=== PATIENT | male | born 1940 | race Caucasian/White ===

== ENCOUNTER 2021-09-27 06:07 | Day surgery (SDC) | payer MEDICARE, OTHER ==
[2021-09-27] VITALS (12 sets, daily range): BP systolic 127–177; BP diastolic 66–97
[~2021-09-27] VITALS: Ht 177.8 cm; Wt 105.9 kg
[~2021-09-27 06:07] MED LIST: CARV-49 PO; CELE-193 PO; CLOP75TA34 PO; DILT300C53 PO; FAMO20TA8 PO; FURO-150 PO; HYDR-3965 PO; ISOS30TA84 PO; TAMS0.4C32 PO; WARF-113 PO
[2021-09-27] MEDS ORDERED: LORazepam 0.5 MG tablet PO PRN (06:30)
[2021-09-27] MEDS ORDERED: sodium bicarbonate (8.4%) inj. 150 ML in dextrose 5%-water 1,000 ML IV ONE ×2 (06:30→08:15)
[2021-09-27] MEDS ORDERED: ROSU20TA31 PO (06:47)
[2021-09-27] MEDS ORDERED: ISOS60TA71 PO (06:47)
[2021-09-27] MEDS ORDERED: DILT-96 PO (06:47)
[2021-09-27] MEDS ORDERED: NITR0.4T48 (06:47)
[2021-09-27] MEDS ORDERED: POTA10TA37 PO (06:47)
[2021-09-27] MEDS ORDERED: CARV-50 PO (06:47)
[2021-09-27] MEDS ORDERED: ASPI-1071 PO (06:49)
[2021-09-27] MEDS ORDERED: UBID50CA23 PO (06:49)
[2021-09-27] MEDS: acetylcysteine 200 MG/ml 4ml vial PO SCH ×4 (07:00→14:24)
[2021-09-27] MEDS: diphenhydrAMINE 25mg capsule PO PRN ×2 (07:00→11:24)
[2021-09-27] MEDS ORDERED: verapamil 2.5 mg/ml inj IV ONE (07:13)
[2021-09-27] MEDS ORDERED: nitroGLYCERIN-Tridil 50MG/D5W 250 ML IV ONE (07:13)
[2021-09-27] MEDS ORDERED: fentaNYL/PF 50MCG/1 ML 2ML syringe ONE (07:14)
[2021-09-27] MEDS ORDERED: LIDOcaine 1% (10mg/ml)w/preservative inj. 20ml MDV ONE (07:14)
[2021-09-27] MEDS ORDERED: heparin 1,000unit/ml 10ml vial 10 ML ONE (07:14)
[2021-09-27] MEDS ORDERED: midazolam 1 mg/ML 2ml injection ONE (07:14)
[2021-09-27] MEDS ORDERED: iohexol 350MG/ML 100ml bottle IV ONE ×2 (07:14→08:48)
[2021-09-27] MEDS ORDERED: iohexol 350 MG/ML 50ML vial IV ONE (07:14)
[2021-09-27 07:15] LABS: BASOPHILS % (AUTO) 0.5 % (0-1); EOSINOPHILS # (AUTO) 0.2 X10'3 (0-0.9); EOSINOPHILS % (AUTO) 5.2 % (0-6); HEMATOCRIT 41.7 % (42.0-52.0); HEMOGLOBIN 14.3 g/dl (14.0-17.9); LYMPHOCYTES # (AUTO) 0.7 X10'3 (1.1-4.8); LYMPHOCYTES % (AUTO) 15.6 % (21-51); MEAN CORPUSCULAR HEMOGLOBIN 34.1 PG (27.0-31.0); MEAN CORPUSCULAR HGB CONC 34.4 g/dL (33.0-36.5); MEAN CORPUSCULAR VOLUME 99.4 FL (78-98); MEAN PLATELET VOLUME 9.5 FL (7.4-10.4); MONOCYTES # (AUTO) 0.5 X10'3 (0-0.9); MONOCYTES % (AUTO) 10.1 % (2-12); NEUTROPHILS # (AUTO) 3.2 X10'3 (1.8-7.7); NEUTROPHILS % (AUTO) 68.6 % (42-75); PLATELET COUNT 137 X10'3 (140-440); RED CELL DISTRIBUTION WIDTH 13.5 % (11.5-14.5); WHITE BLOOD COUNT 4.6 X10'3 (4.5-11.0)
[2021-09-27 07:26] LABS: APTT 27 SECONDS (22-32)
[2021-09-27 08:00] LABS: ALBUMIN 3.4 G/DL (3.4-5.0); ANION GAP 7 (8-16); BLOOD UREA NITROGEN 25 MG/DL (7-18); BUN/CREATININE RATIO 12.7 (5.4-32.0); CALCIUM 8.1 MG/DL (8.5-10.1); CHLORIDE 109 MMOL/L (99-107); CREATININE 1.97 MG/DL (0.60-1.10); GLUCOSE 115 MG/DL (70-104); POTASSIUM 4.1 MMOL/L (3.5-5.1); SODIUM 143 MMOL/L (135-145); TOTAL CARBON DIOXIDE 26.6 MMOL/L (24-32); eGFR 33 ML/MIN
--- NOTE | 2021-09-27 10:00 | NUR ---
at bedside assisting pt to eat breakfast. Groin and radial cath sites stable, peripheral pulses palpable, dressings CD&I no bleeding or bruising noted. Dr. Merino at bedside talking with pt and , giving update, questions answered.
--- NOTE | 2021-09-27 11:00 | NUR ---
headed home to rest will return this afternoon to go over DC instructions. Pt groin and radial site remain stable without bleeding or bruising noted. Pt resting comfortably.
[2021-09-27 12:16] LABS: ISTAT HGB ART 13.3 g/dl (14.0-18.0); ISTAT Hct ART 39 %PCV (42-52); ISTAT O2 SATURATION ARTERIAL 99 % (95-98); ISTAT SOURCE ART
[2021-09-27 12:38] LABS: ISTAT Hct MIX 38 %PCV (42-52); ISTAT O2 SATURATION MIX VENOUS 67 % (60-80); ISTAT SOURCE VEN
--- NOTE | 2021-09-27 13:00 | NUR ---
Sharon Pugh RN at bedside talking with pt about TAVR procedure, questions answered.
--- NOTE | 2021-09-27 13:15 | NUR ---
Pt sitting up in bed Right Groin site stable, no bleeding or bruising noted.
--- NOTE | 2021-09-27 13:30 | NUR ---
Vasc band removed, pressure dressing applied to Right radial site, no bleeding or bruising noted.
--- NOTE | 2021-09-27 13:40 | NUR ---
at bedside, DC instructions written and verbal given to pt and , verbalize understanding. VSS, pulses palp. Right groin and Right radial site stable, DRSGs CD&I, no bleeding or bruising noted. Pt able to amb in hallway without assistance, Groin site remains stable. assisted pt to get dressed.
--- NOTE | 2021-09-27 14:15 | NUR ---
DC to home with all belongings. Transferred to private car via .
[2021-11-04] MEDS ORDERED: CARV-50 PO (11:52)
[2021-11-10] MEDS ORDERED: NITR0.4T51 SL (12:57)
== END 2021-09-27 14:15 | disposition home or self-care (01) ==
LOC: SSTAY O 06:07
PROVIDERS: ATTEND Internal Medicine Cardiovascular Disease
DX: R53.83 Other fatigue (principal); R06.02 Shortness of breath; I25.10 Atherosclerotic heart disease of native coronary artery without angina pectoris; E11.22 Type 2 diabetes mellitus with diabetic chronic kidney disease; I13.0 Hypertensive heart and chronic kidney disease with heart failure and stage 1 through stage 4 chronic kidney disease, or unspecified chronic kidney disease; N18.30 Chronic kidney disease, stage 3 unspecified; I50.30 Unspecified diastolic (congestive) heart failure; E78.5 Hyperlipidemia, unspecified; N40.0 Benign prostatic hyperplasia without lower urinary tract symptoms; G89.29 Other chronic pain; K21.9 Gastro-esophageal reflux disease without esophagitis; I48.20 Chronic atrial fibrillation, unspecified; I08.3 Combined rheumatic disorders of mitral, aortic and tricuspid valves; Z79.82 Long term (current) use of aspirin; Z79.01 Long term (current) use of anticoagulants; Z79.899 Other long term (current) drug therapy; Z95.5 Presence of coronary angioplasty implant and graft; Z86.718 Personal history of other venous thrombosis and embolism; Z86.73 Personal history of transient ischemic attack (TIA), and cerebral infarction without residual deficits; Z85.51 Personal history of malignant neoplasm of bladder; Z90.5 Acquired absence of kidney
CPT/HCPCS: 36415; 76937; 80048; 82803; 85014; 85025; 85610; 85730; 93005; 93460; 99152; 99153; C1751; C1769; C1894; J1644; J2250; J3010; J3490; J7070; Q0163; Q9967; A4620; A5120; A6258

== ENCOUNTER 2021-10-15 08:55 | Outpatient (CLI) | payer MEDICARE, OTHER ==
[~2021-10-15] VITALS: Ht 177.8 cm; Wt 108.0 kg
[~2021-10-15 08:55] MED LIST changes: +ASPI-1071 PO; -CARV-49 PO; +CARV-50 PO; -CLOP75TA34 PO; +DILT-96 PO; -DILT300C53 PO; -ISOS30TA84 PO; +ISOS60TA71 PO; +NITR0.4T48; +POTA10TA37 PO; +ROSU20TA31 PO; -TAMS0.4C32 PO; +UBID50CA23 PO; +iohexol 350 MG/ML 50ML vial IV ONE; +iohexol 350MG/ML 100ml bottle IV ONE
[2021-10-15 10:55] LABS: ANION GAP 12 (8-16); BILIRUBIN,TOTAL 0.7 MG/DL (0.1-1.0); BLOOD UREA NITROGEN 23 MG/DL (7-18); CHLORIDE 107 MMOL/L (99-107); GLUCOSE 136 MG/DL (70-104); POTASSIUM 3.7 MMOL/L (3.5-5.1); SODIUM 146 MMOL/L (135-145); TOTAL CARBON DIOXIDE 27.4 MMOL/L (24-32); eGFR 30 ML/MIN
[2021-10-15 10:56] LABS: ALANINE AMINOTRANSFERASE 26 U/L (12-78); ALBUMIN 3.6 G/DL (3.4-5.0); ALBUMIN/GLOBULIN RATIO 1.2 (1.1-1.5); ALKALINE PHOSPHATASE 66 IU/L (46-116); APTT 30 SECONDS (22-32); ASPARTATE AMINO TRANSFERASE 26 U/L (10-37); TOTAL PROTEIN 6.7 G/DL (6.4-8.2)
[2021-10-15 11:01] LABS: BASOPHILS % (AUTO) 0.5 % (0-1); EOSINOPHILS # (AUTO) 0.3 X10'3 (0-0.9); EOSINOPHILS % (AUTO) 5.6 % (0-6); HEMATOCRIT 43.1 % (42.0-52.0); HEMOGLOBIN 14.5 g/dl (14.0-17.9); LYMPHOCYTES # (AUTO) 0.7 X10'3 (1.1-4.8); LYMPHOCYTES % (AUTO) 16.3 % (21-51); MEAN CORPUSCULAR HEMOGLOBIN 33.5 PG (27.0-31.0); MEAN CORPUSCULAR HGB CONC 33.7 g/dL (33.0-36.5); MEAN CORPUSCULAR VOLUME 99.5 FL (78-98); MEAN PLATELET VOLUME 10.1 FL (7.4-10.4); MONOCYTES # (AUTO) 0.5 X10'3 (0-0.9); MONOCYTES % (AUTO) 10.4 % (2-12); NEUTROPHILS % (AUTO) 67.2 % (42-75); PLATELET COUNT 135 X10'3 (140-440); RED BLOOD COUNT 4.33 X10'6 (4.70-6.10); RED CELL DISTRIBUTION WIDTH 13.7 % (11.5-14.5); WHITE BLOOD COUNT 4.4 X10'3 (4.5-11.0)
[2021-10-15 12:57] LABS: ABG BASE EXCESS 0.5 mmol/L (-2.0-2.0); ABG HCO3 24.9 mmol/L (22.0-26.0); ABG OXYGEN SATURATION 95.5 % (94-97); ABG PCO2 (T) 39.5 mmHg (35.0-48.0); ABG PO2 (T) 73.9 mmHg (75.0-100.0); ALLEN'S TEST POSITIVE; FCOHb 0.6 % (0.0-3.9); FMetHb 0.1 % (0.0-1.5); FO2Hb 94.8 % (94-97); TOTAL HEMOGLOBIN 15.1 G/dl (14.0-18.0)
[2021-10-15] MEDS ORDERED: albuterol 2.5 MG/3 ML nebule NEB ONE (13:20)
== END 2021-10-15 23:59 | disposition home or self-care (01) ==
LOC: RAD 08:55
PROVIDERS: ATTEND Internal Medicine Cardiovascular Disease
DX: I65.23 Occlusion and stenosis of bilateral carotid arteries (principal); I73.9 Peripheral vascular disease, unspecified; K43.9 Ventral hernia without obstruction or gangrene; M51.36 Other intervertebral disc degeneration, lumbar region; N43.3 Hydrocele, unspecified; I70.0 Atherosclerosis of aorta; R59.0 Localized enlarged lymph nodes; M19.012 Primary osteoarthritis, left shoulder; M19.011 Primary osteoarthritis, right shoulder; I25.10 Atherosclerotic heart disease of native coronary artery without angina pectoris; I35.1 Nonrheumatic aortic (valve) insufficiency; R94.2 Abnormal results of pulmonary function studies; Z20.822 Contact with and (suspected) exposure to COVID-19
CPT/HCPCS: 36415; 36600; 71046; 71275; 74174; 80053; 82803; 85018; 85025; 85610; 85730; 87635; 93880; 94060; 94727; 94729; 94760; C9803; Q9967

== ENCOUNTER 2021-11-11 05:22 | Inpatient (IN) | payer MEDICARE, OTHER ==
[2021-11-04 12:28] LABS: BASOPHILS % (AUTO) 0.2 % (0-1); EOSINOPHILS # (AUTO) 0.3 X10'3 (0-0.9); EOSINOPHILS % (AUTO) 4.8 % (0-6); LYMPHOCYTES # (AUTO) 0.8 X10'3 (1.1-4.8); LYMPHOCYTES % (AUTO) 13.9 % (21-51); MEAN CORPUSCULAR HEMOGLOBIN 33.9 PG (27.0-31.0); MEAN CORPUSCULAR VOLUME 99.6 FL (78-98); MEAN PLATELET VOLUME 9.4 FL (7.4-10.4); MONOCYTES # (AUTO) 0.5 X10'3 (0-0.9); MONOCYTES % (AUTO) 7.7 % (2-12); NEUTROPHILS # (AUTO) 4.5 X10'3 (1.8-7.7); NEUTROPHILS % (AUTO) 73.4 % (42-75); PRE OP HEMATOCRIT 41.9 % (42.0-52.0); PRE OP HEMOGLOBIN 14.3 g/dL (14.0-17.9); PRE OP PLATELET COUNT 152 X10'3 (140-440); RED BLOOD COUNT 4.21 X10'6 (4.70-6.10); RED CELL DISTRIBUTION WIDTH 13.8 % (11.5-14.5)
[2021-11-04 12:37] LABS: PRE OP PROTIME 17.9 SECONDS (9.0-12.0)
[2021-11-04 12:39] LABS: CLARITY,URINE CLEAR (Clear); COLOR,URINE YELLOW (Yellow); GLUCOSE, URINE NEGATIVE (Neg); KETONES,URINE NEGATIVE (Neg); LEUKOCYTE ESTERASE ,URINE NEGATIVE (Neg); NITRITES, URINE NEGATIVE (Neg); OCCULT BLOOD,URINE TRACE-INTACT (Neg); PH,URINE 6.5 (4.8-8.0); PROTEIN,URINE NEGATIVE (Neg); UROBILINOGEN,URINE 0.2 E.U/dL (0.2-1.0)
[2021-11-04 12:40] LABS: ALBUMIN 3.6 G/DL (3.4-5.0); ALBUMIN/GLOBULIN RATIO 0.9 (1.1-1.5); ALKALINE PHOSPHATASE 75 IU/L (46-116); BLOOD UREA NITROGEN 26 MG/DL (7-18); BUN/CREATININE RATIO 12.8 (5.4-32.0); CALCIUM 8.5 MG/DL (8.5-10.1); CHLORIDE 106 MMOL/L (99-107); CREATININE 2.03 MG/DL (0.60-1.10); PRE OP ALT 30 U/L (30-65); PRE OP ANION GAP 8 (8-16); PRE OP AST 28 U/L (10-37); PRE OP BILIRUB, TOTAL 0.9 MG/DL (0.0-1.0); PRE OP GLUCOSE 119 MG/DL (70-104); PRE OP POTASSIUM 4.1 MMOL/L (3.4-5.1); PRE OP SODIUM 140 MMOL/L (135-145); TOTAL CARBON DIOXIDE 26.3 MMOL/L (24-32); TOTAL PROTEIN 7.4 G/DL (6.4-8.2); eGFR 32 ML/MIN
[2021-11-04 12:44] LABS: PRE OP INR 1.8 INR
[2021-11-04 12:44] LABS: UA COLLECTION TYPE CLN CATCH MIDSTREAM
[2021-11-04 12:51] LABS: BACTERIA,URINE NONE SEEN /HPF (Neg); RBC,URINE 0-2 /HPF (0-2); SQUAMOUS EPITHELIAL CELL,UR FEW /LPF (FEW); WBC,URINE 0-4 /HPF (0-4)
[~2021-11-11] VITALS: Ht 177.8 cm; Wt 106.3 kg
[2021-11-11] VITALS (21 sets, daily range): BP systolic 113–178; BP diastolic 66–101
[~2021-11-11 05:22] MED LIST changes: -NITR0.4T48; +NITR0.4T51 SL; -iohexol 350 MG/ML 50ML vial IV ONE; -iohexol 350MG/ML 100ml bottle IV ONE
[2021-11-11] MEDS ORDERED: aspirin 325mg tablet PO ONE (05:30)
[2021-11-11] MEDS ORDERED: famotidine 20mg tablet PO ONE (05:30)
[2021-11-11] MEDS ORDERED: ondansetron/PF 4mg/2ml inj IV PRN ×3 (05:30→08:55)
[2021-11-11] MEDS ORDERED: cefazolin/dext.iso 2gm/50ml 50 ML IV ONE (05:30)
[2021-11-11] MEDS ORDERED: nitroPRUSSIDE sod inj. 50 MG in dextrose 5%-water 248 ML IV SCH ×2 (05:55→07:10)
[2021-11-11] MEDS ORDERED: heparin 1,000 UNITS/NS 500ml 1,500 ML ONE (06:36)
[2021-11-11] MEDS ORDERED: iohexol 350 MG/ML 50ML vial IV ONE (06:36)
[2021-11-11] MEDS ORDERED: LIDOcaine 1% (10mg/ml)w/preservative inj. 20ml MDV ONE ×2 (06:36→06:51)
[2021-11-11] MEDS ORDERED: iohexol 350MG/ML 100ml bottle IV ONE (06:36)
[2021-11-11] MEDS ORDERED: protamine sulfate 10mg/ml inj. ONE (06:37)
[2021-11-11] MEDS ORDERED: iohexol 350 MG/1 ML 200ml bottle ONE (06:43)
[2021-11-11] MEDS ORDERED: LIDOcaine 1% (10mg/ml) 2ml vial ONE (06:53)
[2021-11-11] MEDS ORDERED: morphine 4 MG/ML inj SYRINge IV PRN (07:10)
[2021-11-11] MEDS ORDERED: hydrALAZINE 20mg/ml inj. IV PRN (07:10)
[2021-11-11] MEDS ORDERED: labetalol 20mg/4ml (5mg/ml) syringe IV PRN ×2 (07:10→08:55)
[2021-11-11] MEDS ORDERED: fentaNYL/PF 50MCG/1 ML 2ML syringe IV PRN ×2 (07:10)
[2021-11-11] MEDS ORDERED: ringers solution, lacted 1,000 ML IV SCH (07:10)
[2021-11-11] MEDS ORDERED: morphine 2 MG/ML inj. syringe IV PRN (07:10)
[2021-11-11] MEDS ORDERED: phenylephrine inj 50 MG in normal saline 250ml IV soln 245 ML IV SCH (07:10)
[2021-11-11] MEDS ORDERED: dexmedetomidine 200mcg/2ml inj. IV ONE (07:14)
[2021-11-11] MEDS ORDERED: FENTANYL CITRATE/PF 50 MCG/1 ML VIAL ONE (07:17)
[2021-11-11] MEDS ORDERED: MIDAZolam 1 MG/ML 5ML VIAL ONE (07:17)
[2021-11-11] MEDS ORDERED: heparin 1,000unit/ml 10ml vial 10 ML ONE (07:17)
[2021-11-11] MEDS ORDERED: propofol inj 20 ML IV ONE (07:19)
[2021-11-11] MEDS ORDERED: LIDOcaine 2% (20mg/ml) 5ml vial ONE (07:19)
[2021-11-11] MEDS ORDERED: protamine sulf. 10mg/ml inj. IV ONE (07:50)
[2021-11-11] MEDS ORDERED: potassium Cl 40MEQ/250ML bag 250 ML IV PRN (08:55)
[2021-11-11] MEDS ORDERED: potassium CL 10mEq/100ml bag 100 ML IV PRN (08:55)
[2021-11-11] MEDS ORDERED: proCHLORperazine 10 MG/2 ml inj IV PRN (08:55)
[2021-11-11] MEDS ORDERED: potassium Cl 40MEQ/1/2NS 520ml 520 ML IV PRN (08:55)
[2021-11-11] MEDS ORDERED: ALPRAZolam 0.25mg tablet PO PRN (08:55)
[2021-11-11] MEDS ORDERED: magnesium 2GM in 50ml NS 50 ML IV PRN (08:55)
[2021-11-11] MEDS ORDERED: magnesium 4gm in 100ml NS 100 ML IV PRN (08:55)
[2021-11-11] MEDS ORDERED: acetaminophen 325mg tablet PO PRN (08:55)
[2021-11-11] MEDS ORDERED: potassium Cl 20 mEq SR tablet PO PRN (08:55)
[2021-11-11] MEDS ORDERED: docusate sod 100mg capsule PO PRN (08:55)
[2021-11-11] MEDS ORDERED: diphenhydrAMINE 25mg capsule PO PRN (08:55)
[2021-11-11] MEDS: normal saline 1000ml 1,000 ML IV SCH ×2 (08:55→18:55)
[2021-11-11] MEDS ORDERED: pantoprazole 40mg Tablet.DR PO PRN (08:55)
--- NOTE | 2021-11-11 09:15 | NUR ---
Received from OR via [facility], accompanied by Anesthesiologist ZEFERINO and report given by Anesthesiolgist. PATIENT WITH 18G PIV IN LEFT UE RUNNING LR AT 100. ONLY C.O. PAIN IN BACK AT THIS TIME. VSS. ART LINE IN LEFT UE, LEFT AND RIGHT INGUINAL DRESSINGS CDI AT THIS TIME. NEUROLOGICALLY INTACTD AT THIS TIME. PUSH PULLS AND ANTHROPOLOGY AND ARCHEOLOGY INSTRUCTOR ALL EQUAL. TONGUE MIDLINE. 10L MASK ON WITH 100% SATURATIONS. OCCASIONAL PVCS. WILL CONTINUE TO ASSESS AND TREAT. Addendum: 11/11/21 at 0924 by Dhiraj Gudino RN, RN Amended: Links added.
--- NOTE | 2021-11-11 09:37 | NUR ---
REASSESSED BILAT DPS - BOTH PRESENT AND STRONG. NEUROLOGICALLY INTACT. WITH PUSH PULLS. MACHINE SPRING FORMER , TONGUE STILL MIDLINE AND SMILE SYMMETRICAL. Addendum: 11/11/21 at 0938 by Dhiraj Swartz - CEDRIC STEELE Amended: Links added.
--- NOTE | 2021-11-11 10:23 | NUR ---
PATIENT HAS MET ALL CRITERIA FOR TRANSFER TO THE SURGICAL/WILL/PCU/ORTHO/ICU FLOOR. VSS. DRESSINGS INTACT. BED LOW, CALL LIGHT PRESENT AND 2 RAILS UP. RN PRESENT TO ACCEPT CARE OF PATIENT AND REPORT HAS BEEN CALLED. ALL QUESTIONS ANSWERED TO ACCEPTING RN. NEUROLOGICALLY INTACT STILL , PATIENT VSS. ONLY PAIN IS IN LOW BACK 2' OLD BACK ISSUES. PULSES INTACT AND PRESENT ON PALPATION. GOING CHECKS ARE STILL CDI. VSS. Addendum: 11/11/21 at 1029 by Dhiraj Swartz - CEDRIC RN Amended: Links added.
[2021-11-11 10:45] LABS: ISTAT HGB ART 11.9 g/dl (14.0-18.0); ISTAT Hct ART 35 %PCV (42-52); ISTAT O2 SATURATION ARTERIAL 86 % (95-98); ISTAT SOURCE ART
[2021-11-11] MEDS: hydrALAZINE 20mg/ml inj. IV PRN ×2 (11:11→12:05)
[2021-11-11] MEDS ORDERED: nitroGLYCERIN 0.4mg SUBLingual tab SL PRN (11:15)
[2021-11-11] MEDS ORDERED: PHENYLephrine 50 MG in NS 250ml IV soln IV SCH (12:10)
[2021-11-11] MEDS ORDERED: nitroPRUSSIDE 20mg in NS 100 ML IV SCH (12:10)
[2021-11-11] MEDS ORDERED: diltiazem CD 120mg capsule (once-daily) PO ONE (13:00)
[2021-11-11 13:15] LABS: BASOPHILS % (AUTO) 0.4 % (0-1); EOSINOPHILS # (AUTO) 0.1 X10'3 (0-0.9); EOSINOPHILS % (AUTO) 1.9 % (0-6); HEMATOCRIT 43.2 % (42.0-52.0); HEMOGLOBIN 14.5 g/dl (14.0-17.9); LYMPHOCYTES # (AUTO) 0.6 X10'3 (1.1-4.8); LYMPHOCYTES % (AUTO) 10.1 % (21-51); MEAN CORPUSCULAR HGB CONC 33.7 g/dL (33.0-36.5); MEAN CORPUSCULAR VOLUME 98.1 FL (78-98); MEAN PLATELET VOLUME 9.5 FL (7.4-10.4); MONOCYTES # (AUTO) 0.4 X10'3 (0-0.9); MONOCYTES % (AUTO) 6.7 % (2-12); NEUTROPHILS # (AUTO) 4.9 X10'3 (1.8-7.7); NEUTROPHILS % (AUTO) 80.9 % (42-75); PLATELET COUNT 136 X10'3 (140-440); RED CELL DISTRIBUTION WIDTH 13.6 % (11.5-14.5)
[2021-11-11 14:01] LABS: ALANINE AMINOTRANSFERASE 24 U/L (12-78); ALBUMIN 3.6 G/DL (3.4-5.0); ALKALINE PHOSPHATASE 64 IU/L (46-116); ANION GAP 9 (8-16); ASPARTATE AMINO TRANSFERASE 26 U/L (10-37); BILIRUBIN,TOTAL 0.8 MG/DL (0.1-1.0); BLOOD UREA NITROGEN 26 MG/DL (7-18); BUN/CREATININE RATIO 13.8 (5.4-32.0); CALCIUM 8.6 MG/DL (8.5-10.1); CHLORIDE 108 MMOL/L (99-107); CREATININE 1.88 MG/DL (0.60-1.10); GLUCOSE 132 MG/DL (70-104); SODIUM 143 MMOL/L (135-145); TOTAL CARBON DIOXIDE 25.6 MMOL/L (24-32); TOTAL PROTEIN 7.2 G/DL (6.4-8.2); eGFR 35 ML/MIN
[2021-11-11] MEDS: ceFAZolin 1GM/D5W- ADD-VANTAGE 50 ML IV SCH (16:27)
[2021-11-11] MEDS: sod chloride 0.9% 10ml flush syringe IV SCH (16:28)
[2021-11-11] MEDS: vancomycin/NS 1 GM ADD-VANTAGE 200 ML IV SCH (20:04)
[2021-11-11] MEDS: famotidine 20mg tablet PO SCH (20:06)
[2021-11-11] MEDS ORDERED: atorvastatin 20mg tablet PO SCH (21:00)
[2021-11-11] MEDS ORDERED: carvedilol 6.25mg tablet PO SCH (21:00)
[2021-11-11] MEDS ORDERED: warfarin 3mg tablet PO SCH ×2 (21:00)
[2021-11-12] MEDS: ceFAZolin 1GM/D5W- ADD-VANTAGE 50 ML IV SCH ×2 (00:05→08:36)
[2021-11-12] MEDS: sod chloride 0.9% 10ml flush syringe IV SCH ×2 (00:05→08:36)
[2021-11-12 02:00] VITALS: BP 156/54
[2021-11-12] MEDS ORDERED: ringers solution, lacted 1,000 ML IV SCH (05:00)
[2021-11-12] MEDS ORDERED: DOCUMENT DATE & TIME OF BETA-BLOCKER PO ONE (05:30)
[2021-11-12 05:41] LABS: BASOPHILS % (AUTO) 0.4 % (0-1); EOSINOPHILS # (AUTO) 0.1 X10'3 (0-0.9); EOSINOPHILS % (AUTO) 1.9 % (0-6); HEMATOCRIT 39.5 % (42.0-52.0); HEMOGLOBIN 13.4 g/dl (14.0-17.9); LYMPHOCYTES # (AUTO) 0.6 X10'3 (1.1-4.8); MEAN CORPUSCULAR HEMOGLOBIN 33.6 PG (27.0-31.0); MEAN CORPUSCULAR VOLUME 98.7 FL (78-98); MEAN PLATELET VOLUME 9.2 FL (7.4-10.4); MONOCYTES # (AUTO) 0.8 X10'3 (0-0.9); MONOCYTES % (AUTO) 10.5 % (2-12); NEUTROPHILS # (AUTO) 5.8 X10'3 (1.8-7.7); NEUTROPHILS % (AUTO) 79.2 % (42-75); PLATELET COUNT 115 X10'3 (140-440); RED CELL DISTRIBUTION WIDTH 13.6 % (11.5-14.5); WHITE BLOOD COUNT 7.4 X10'3 (4.5-11.0)
--- NOTE | 2021-11-12 05:58 | NUR ---
Problems reprioritized. Patient report given, questions answered & plan of care reviewed with Ayesha STEELE.
[2021-11-12 06:00] VITALS: BP 154/64
[2021-11-12 06:01] LABS: ALANINE AMINOTRANSFERASE 17 U/L (12-78); ALBUMIN 3.2 G/DL (3.4-5.0); ALKALINE PHOSPHATASE 56 IU/L (46-116); ANION GAP 11 (8-16); ASPARTATE AMINO TRANSFERASE 20 U/L (10-37); BILIRUBIN,TOTAL 0.9 MG/DL (0.1-1.0); BLOOD UREA NITROGEN 29 MG/DL (7-18); BUN/CREATININE RATIO 13.9 (5.4-32.0); CALCIUM 8.3 MG/DL (8.5-10.1); CHLORIDE 106 MMOL/L (99-107); CREATININE 2.09 MG/DL (0.60-1.10); GLUCOSE 108 MG/DL (70-104); MAGNESIUM 2.3 MG/DL (1.5-2.4); POTASSIUM 3.8 MMOL/L (3.5-5.1); SODIUM 141 MMOL/L (135-145); TOTAL CARBON DIOXIDE 24.5 MMOL/L (24-32); TOTAL PROTEIN 6.5 G/DL (6.4-8.2); eGFR 31 ML/MIN
[2021-11-12] MEDS ORDERED: aspirin 81mg, enteric-coated 1 TAB TABLET.DR PO SCH (08:00)
[2021-11-12] MEDS ORDERED: diltiazem CD 120mg capsule (once-daily) PO SCH (08:00)
[2021-11-12] MEDS ORDERED: isosorbide mononitrate 30mg tab.SR.24H PO SCH (08:00)
[2021-11-12] MEDS ORDERED: HYDROcodone/acetaminophen 5mg/325mg tablet PO SCH (08:00)
[2021-11-12] MEDS ORDERED: carVEDilol 12.5mg tablet PO SCH (08:00)
[2021-11-12] MEDS: vancomycin/NS 1 GM ADD-VANTAGE 200 ML IV SCH (08:36)
[2021-11-12] MEDS: famotidine 20mg tablet PO SCH (08:38)
[2021-11-12 10:00] VITALS: BP 151/69
--- NOTE | 2021-11-12 13:55 | NUR ---
Pt discharged to home from the hospital. Discharge was delayed due to a pending echo review by Dr. Veloz. Discharge paperwork reviewed and signed with the assistance of this jingle writer. All questions and concerns were addressed by this jingle writer. PIV and telemetry were removed. Belongings were returned. No prescriptions were provided at the time of discharge.
--- NOTE | 2021-11-12 15:01 | NUR ---
Orientee documentation: I have reviewed and agree with all interventions, assessments performed and documented by CEDRIC Hurley.
[2021-11-13] MEDS ORDERED: famotidine 20mg tablet PO SCH (08:00)
== END 2021-11-12 13:20 | disposition home or self-care (01) | DRG 267 ==
LOC: PAS IN 05:22 → MED 3N 10:20
PROVIDERS: ADMIT Internal Medicine Cardiovascular Disease; ATTEND Internal Medicine Cardiovascular Disease
PROC: B41D1ZZ Fluoroscopy of Aorta and Bilateral Lower Extremity Arteries using Low Osmolar Contrast (ICD-10-PCS; 2021-11-11)
PROC: X2RF332 Replacement of Aortic Valve using Zooplastic Tissue, Rapid Deployment Technique, Percutaneous Approach, New Technology Group 2 (ICD-10-PCS; principal; 2021-11-11 07:25)
DX: I35.0 Nonrheumatic aortic (valve) stenosis (principal); I48.20 Chronic atrial fibrillation, unspecified; I50.30 Unspecified diastolic (congestive) heart failure; I13.0 Hypertensive heart and chronic kidney disease with heart failure and stage 1 through stage 4 chronic kidney disease, or unspecified chronic kidney disease; E78.5 Hyperlipidemia, unspecified; I44.7 Left bundle-branch block, unspecified; K21.9 Gastro-esophageal reflux disease without esophagitis; I25.10 Atherosclerotic heart disease of native coronary artery without angina pectoris; N18.9 Chronic kidney disease, unspecified; N40.0 Benign prostatic hyperplasia without lower urinary tract symptoms; Z00.6 Encounter for examination for normal comparison and control in clinical research program; Z79.01 Long term (current) use of anticoagulants; Z85.51 Personal history of malignant neoplasm of bladder; Z86.718 Personal history of other venous thrombosis and embolism; Z86.73 Personal history of transient ischemic attack (TIA), and cerebral infarction without residual deficits; Z87.891 Personal history of nicotine dependence; Z90.5 Acquired absence of kidney; Z95.5 Presence of coronary angioplasty implant and graft
CPT/HCPCS: 33361; 36415; 71045; 71046; 80053; 81001; 82803; 82948; 83735; 83880; 85014; 85025; 85347; 85610; 85730; 86885; 86900; 86901; 86920; 87081; 93005; 93308; A4618; A6258; A6449; C1760; C1769; C1894; G0378; J0360; J0690; J1644; J2250; J2405; J2704; J2720; J3010; J3370; J3490; J7040; J7120; Q9967; U0003; U0005

== ENCOUNTER 2021-12-08 13:01 | Outpatient (CLI) | payer MEDICARE, OTHER | END 2021-12-08 23:59 | disposition home or self-care (01) | LOC: CARD DIAG 13:01 | PROVIDERS: ATTEND Internal Medicine Cardiovascular Disease | DX: I48.91 Unspecified atrial fibrillation (principal); I08.8 Other rheumatic multiple valve diseases; Z95.2 Presence of prosthetic heart valve; Z48.812 Encounter for surgical aftercare following surgery on the circulatory system | CPT/HCPCS: 93005; 93306 ==